=== PATIENT | male | born 1975 | race Caucasian/White ===

== ENCOUNTER 2016-07-11 11:21 | Emergency (ER) | payer BC ==
[~2016-07-11 11:21] MED LIST: ALLEGRA180 PO; AMLACTIN121 EX; ATIVAN2 MG PO; BABY OIL OT; CALTRA600D PO; CENTRUM PO; CENTRUM TAB1 TAB PO; CITRACAL PO; DEXILANT PO; FOSAMAX70 MG PO; KAPIDEX60 MG PO; MAG CITRATE PO; MIRALAXPKT PO; NEUR600 PO; SALINE NASAL SPRAY; SALINE NASAL SPRAY NAS; SEROQUEL200 MG PO; VITAMIN D1000 UNI1 PO; [UNRECOGNIZED DRUG - OTHER]; [UNRECOGNIZED DRUG - OTHER] TOP
[2016-10-05] MEDS ORDERED: PRILOSEC40 MG PO (17:34)
[2016-10-05] MEDS ORDERED: NEUR600 PO (17:35)
[2016-10-05] MEDS ORDERED: MULTIVITAMI1 PO (17:35)
[2016-10-05] MEDS ORDERED: 8 HOUR650 MG PO (17:36)
[2016-10-05] MEDS ORDERED: HALF81 PO (17:36)
[2016-10-05] MEDS ORDERED: FOSAMAX70 MG PO (17:36)
[2016-10-05] MEDS ORDERED: VITAMIN D2000 UNIT PO (17:37)
[2016-10-05] MEDS ORDERED: PRAV10 PO (17:37)
[2016-10-05] MEDS ORDERED: NIASPAN500 PO (17:37)
[2016-10-05] MEDS ORDERED: DSS PO (17:38)
[2016-10-05] MEDS ORDERED: CLARIT10 PO (17:38)
[2016-10-05] MEDS ORDERED: MIRALAX POWDER1 PKT PO (17:38)
[2016-10-05] MEDS ORDERED: OCEAN NAS (17:39)
[2016-10-05] MEDS ORDERED: DEPAKOT500 PO (17:39)
[2016-10-05] MEDS ORDERED: SEROQUEL400 MG PO (17:39)
[2016-10-09] MEDS ORDERED: VITAMIN B-625 MG PO (11:45)
[2016-10-09] MEDS ORDERED: NORCO1 TA2 PO (11:45)
[2016-10-09] MEDS ORDERED: BACTRIM DS1 TAB PO (11:46)
[2016-10-09] MEDS ORDERED: RIFADIN 300 MG300 MG PO (11:47)
== END 2016-07-11 11:23 | disposition home or self-care (01) ==
LOC: ER 11:21
DX: S01.81XA Laceration without foreign body of other part of head, initial encounter (principal); F41.9 Anxiety disorder, unspecified; Z88.8 Allergy status to other drugs, medicaments and biological substances; Z79.899 Other long term (current) drug therapy; W19.XXXA Unspecified fall, initial encounter
CPT/HCPCS: 90471; 90714; 99283

== ENCOUNTER 2016-08-15 10:18 | Emergency (ER) | payer BC ==
[2016-10-05] MEDS ORDERED: PRILOSEC40 MG PO (17:34)
[2016-10-05] MEDS ORDERED: MULTIVITAMI1 PO (17:35)
[2016-10-05] MEDS ORDERED: NEUR600 PO (17:35)
[2016-10-05] MEDS ORDERED: FOSAMAX70 MG PO (17:36)
[2016-10-05] MEDS ORDERED: 8 HOUR650 MG PO (17:36)
[2016-10-05] MEDS ORDERED: HALF81 PO (17:36)
[2016-10-05] MEDS ORDERED: PRAV10 PO (17:37)
[2016-10-05] MEDS ORDERED: VITAMIN D2000 UNIT PO (17:37)
[2016-10-05] MEDS ORDERED: NIASPAN500 PO (17:37)
[2016-10-05] MEDS ORDERED: MIRALAX POWDER1 PKT PO (17:38)
[2016-10-05] MEDS ORDERED: CLARIT10 PO (17:38)
[2016-10-05] MEDS ORDERED: DSS PO (17:38)
[2016-10-05] MEDS ORDERED: DEPAKOT500 PO (17:39)
[2016-10-05] MEDS ORDERED: OCEAN NAS (17:39)
[2016-10-05] MEDS ORDERED: SEROQUEL400 MG PO (17:39)
[2016-10-09] MEDS ORDERED: VITAMIN B-625 MG PO (11:45)
[2016-10-09] MEDS ORDERED: NORCO1 TA2 PO (11:45)
[2016-10-09] MEDS ORDERED: BACTRIM DS1 TAB PO (11:46)
[2016-10-09] MEDS ORDERED: RIFADIN 300 MG300 MG PO (11:47)
== END 2016-08-15 12:16 | disposition home or self-care (01) ==
LOC: ER 10:18
DX: S00.03XA Contusion of scalp, initial encounter (principal); F41.9 Anxiety disorder, unspecified; F79 Unspecified intellectual disabilities; Z88.8 Allergy status to other drugs, medicaments and biological substances; Z79.899 Other long term (current) drug therapy; W19.XXXA Unspecified fall, initial encounter
CPT/HCPCS: 70450; 72125; 99283